=== PATIENT | male | born 1945 | race Caucasian/White ===

== ENCOUNTER → 2018-12-14 | Outpatient (CLI) | payer MEDICARE ==
[~2018-12-14] MED LIST: /AUGM25TA OR; BUSP1TAB PO; FLUO20CA19 PO; LISI10TA4 PO; METO1TAB32 PO; NAPR-855 PO; NO HOME MEDICATIONS
--- NOTE | 2018-12-14 21:15 | ECGEPIP ---
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
== END ==
LOC: M EKG 11:57
PROVIDERS: ATTEND Anesthesiology
DX: Z01.818 Encounter for other preprocedural examination (principal)

== ENCOUNTER 2018-12-18 09:03 | Day surgery (SDC) | payer MEDICARE ==
[~2018-12-18] VITALS: Ht 172.7 cm; Wt 80.3 kg
[~2018-12-18 09:03] MED LIST changes: +LIDOCAINE 2% INJ 100 MG/5 ML SDV (FOR ANES.) As Ordered ONE; +LR 1,000 ML IV ONE; +MIDAZOLAM INJ 2 MG/2 ML VIAL (J2250) As Ordered ONE; +ONDANSETRON 4MG/2ML VIAL (J2405) As Ordered ONE; +PROPOFOL 200 MG/20 ML VIAL As Ordered ONE; +ROCURONIUM BROMIDE 50 MG/5 ML VIAL As Ordered ONE; +ceFAZolin SOD 1 GM in D5W MINI-BAG PLUS 50 ML IV ONE; +dexameTHASONE 4 MG/ML 1ML VIAL (J1100) As Ordered ONE; +fentaNYL 250 MCG/5 ML INJECTION (J3010) As Ordered ONE
[2018-12-18 09:55] LABS: CALCIUM LEVEL 8.7 MG/DL (8.8-10.2); CREATININE FOR GFR 1.52 MG/DL (0.70-1.30); GLOMERULAR FILTRATION RATE 47.8 (>42)
[2018-12-18] MEDS ORDERED: BUPIVACAINE/EPIN 0.25% 30 ML VIAL As Ordered ONE (10:01)
[2018-12-18] MEDS ORDERED: SEVOFLURANE INHAL SOLN 250 ML BTL As Ordered ONE (10:05)
[2018-12-18] MEDS ORDERED: ROCURONIUM BROMIDE 50 MG/5 ML VIAL As Ordered ONE (12:13)
[2018-12-18] MEDS ORDERED: ePHEDrine SULFATE 25 MG/5 ML(5MG/ML) SYRINGE As Ordered ONE ×2 (12:19→12:28)
[2018-12-18] MEDS ORDERED: SUGAMMADEX SODIUM 500 MG/5 ML VIAL (BRIDION) As Ordered ONE (12:31)
[2018-12-18] MEDS ORDERED: LR 1,000 ML IV SCH ×2 (13:15)
[2018-12-18] MEDS ORDERED: HYDROMORPHONE HCL 0.5 MG/ 0.5 ML SYRINGE (J1170 PER 1) IV PRN (13:15)
[2018-12-18] MEDS ORDERED: PERCOCET 5MG/325MG TAB PO PRN (13:15)
[2018-12-18] MEDS ORDERED: NORCO, ANEXSIA 5/325MG TABLET (HYDROcodone/ACETAMINOPHEN) PO PRN (13:15)
[2018-12-18] MEDS ORDERED: ONDANSETRON 4MG/2ML VIAL (J2405) IV PRN ×2 (13:15)
[2018-12-18] MEDS ORDERED: fentaNYL 100 MCG/2 ML INJECTION (J3010) IV PRN (13:15)
--- NOTE | 2018-12-18 13:29 | RO ---
DATE OF PROCEDURE: 12/18/2018 PREOPERATIVE DIAGNOSIS: Recurrent left inguinal hernia. POSTOPERATIVE DIAGNOSIS: Recurrent left inguinal hernia. PROCEDURE: Robotic-assisted laparoscopic left inguinal hernia repair with ProGrip mesh. SURGEON: Dr. Bill Hennessy COUPLES THERAPIST: Betty Smith (provided retraction, instrument exchange, trocar placement, and abdominal wall closure). ANESTHESIA: General endotracheal anesthesia ESTIMATED BLOOD LOSS: Minimal. FLUIDS: Crystalloid. BRIEF PROCEDURE SUMMARY: The patient was brought to the operating room and was given general anesthesia. After adequate anesthesia and preoperative antibiotics were given, the patient was prepped and draped in the usual sterile fashion. Next, a supraumbilical incision was made with skin knife. Blunt dissection was carried down to fascia. The ascia was grasped Konrad clamps, elevated and a Veress needle placed into the abdominal cavity and insufflated to 15 mm of pressure. A dilating 5 mm trocar was placed at this time and under direct visualization two lateral 8 mm trocars were placed. The camera port was replaced at the umbilicus. The patient was placed in steep Trendelenburg. There was an obvious indirect inguinal hernia present where the mesh had been pulled into the hernia sac itself, but it seemed to be only attached to the peritoneum in the inguinal canal, and more so medially it was still quite adherent over the vessels and the Arthur's areas. However, the peritoneum was taken down with cautery and monopolar cut scissors and the peritoneal flap was developed. This was relatively a fatty layer that was taken down and mostly I anticipate because of the mesh in place it was adherent to the some of the preperitoneal fat and this plane was created. There was some adhesions/inflammatory changes throughout this area and it was a relatively long slow progress to dissect the mesh off the vessels and Arthur's, etc. After visualizing Arthur's adequately and there was no evidence of a direct inguinal hernia and I was able to get an adequate coverage medially, I felt that performing extra dissection over this area would be not safe and could incur some bleeding and this was not where the hernia was, thus I was able to mobilize the hernia sac laterally and then folded it medially up to the place where it was attached to the mesh and the mesh and the hernia sac was mobilized out of the inguinal canal and off the cord structures. The cord structures were also quite adherent to the mesh itself, but eventually I was able to mobilize these off the mesh itself and get a good distance of the vessels and the vas appreciated. Next, the inguinal canal opening was quite capacious and I felt that this needed to be closed to some extent. Thus, I used a #3-0 V-Loc to close some of the hernia/internal opening, and essentially the area which closed on the lateral aspect of it was closing easily and the muscle came down relatively easy. It did not go medially where obviously there was much more tension across this area. In any case, this area was closed to some extent, probably about 2-3 cm laterally to medially. Then, the ProGrip mesh was placed in the appropriate preperitoneal place and then I tacked in on Arthur's as well as medially with #3-0 Vicryl. The peritoneum was closed over the top of this with running V-Loc suture. All trocars were removed under direct visualization. #4-0 Vicryl was used to close all incisions. The patient was awakened, extubated and brought to the recovery room awake, alert and hemodynamically stable. Sponge and needle counts were correct times two.
[2018-12-18] MEDS ORDERED: KETOROLAC 30 MG/ML VIAL (J1885) IV SCH (14:00)
[2018-12-18 15:00] VITALS: BP 128/77
== END 2018-12-18 15:15 | disposition home or self-care (01) ==
LOC: M SDC 09:03
PROVIDERS: ATTEND Surgery
DX: K40.91 Unilateral inguinal hernia, without obstruction or gangrene, recurrent (principal); I10 Essential (primary) hypertension; M12.9 Arthropathy, unspecified; Z79.899 Other long term (current) drug therapy
CPT/HCPCS: 36415; 49651; 80048; C1781; J0690; J1100; J2250; J2405; J3010

== ENCOUNTER → 2019-08-19 | Outpatient (CLI) | payer MEDICARE ==
[~2019-08-19] MED LIST changes: -LIDOCAINE 2% INJ 100 MG/5 ML SDV (FOR ANES.) As Ordered ONE; -LR 1,000 ML IV ONE; -MIDAZOLAM INJ 2 MG/2 ML VIAL (J2250) As Ordered ONE; -ONDANSETRON 4MG/2ML VIAL (J2405) As Ordered ONE; -PROPOFOL 200 MG/20 ML VIAL As Ordered ONE; -ROCURONIUM BROMIDE 50 MG/5 ML VIAL As Ordered ONE; -ceFAZolin SOD 1 GM in D5W MINI-BAG PLUS 50 ML IV ONE; -dexameTHASONE 4 MG/ML 1ML VIAL (J1100) As Ordered ONE; -fentaNYL 250 MCG/5 ML INJECTION (J3010) As Ordered ONE
[2019-08-19 13:42] LABS: BASO % 0.5 % (0.0-1.0); EOS % 0.2 % (0.0-3.0); HEMOGLOBIN 17.3 g/dl (13.5-17.5); LYMPH # 0.8 10^3/uL (1.5-5.0); LYMPH % 13.5 % (24.0-44.0); MEAN CORPUSCULAR HEMOGLOBIN 30.5 pg (27.0-33.0); MEAN CORPUSCULAR HGB CONC 33.3 g/dl (32.0-36.5); MEAN CORPUSCULAR VOLUME 91.7 fl (80.0-96.0); MONO # 0.6 10^3/uL (0.0-0.8); MONO % 10.6 % (0.0-5.0); NEUTROPHILS # 4.3 10^3/uL (1.5-8.5); NEUTROPHILS % 74.5 % (36.0-66.0); PLATELET COUNT, AUTOMATED 212 10^3/uL (150-450); RED BLOOD COUNT 5.67 10^6/uL (4.30-6.10); WHITE BLOOD COUNT 5.8 10^3/uL (4.0-10.0)
[2019-08-19 13:49] LABS: CHOLESTEROL RISK RATIO 4.609 (<5)
== END ==
LOC: M SMT 10:02
PROVIDERS: ATTEND Nurse Practitioner Adult Health
DX: Z79.899 Other long term (current) drug therapy (principal); I10 Essential (primary) hypertension; K40.90 Unilateral inguinal hernia, without obstruction or gangrene, not specified as recurrent; F41.9 Anxiety disorder, unspecified

== ENCOUNTER → 2019-09-02 | Outpatient (CLI) | payer MEDICARE ==
[2019-09-02 13:30] LABS: ALBUMIN 3.3 GM/DL (3.2-5.2)
== END ==
LOC: M SMT 11:56
PROVIDERS: ATTEND Orthopaedic Surgery Adult Reconstructive Orthopaedic Surgery
DX: Z01.818 Encounter for other preprocedural examination (principal); M25.561 Pain in right knee; M17.11 Unilateral primary osteoarthritis, right knee; D63.8 Anemia in other chronic diseases classified elsewhere; E11.9 Type 2 diabetes mellitus without complications